=== PATIENT | male | born 1970 | race Caucasian/White ===

== ENCOUNTER 2020-03-09 19:49 | Emergency (ER) | payer OTHER ==
[~2020-03-09] VITALS: Ht 185.4 cm; Wt 67.1 kg
[~2020-03-09 19:49] MED LIST: CELEBREX400 MG PO; FOLIC ACID1 MG PO; HUMIRA40 MG/0.8; MEDROLDOSEPACK PO; METHOTREXATE 22.5 M1 PO; MILLIPRED DP5 M1 PO; NOHOMEMEDICATIONS; NORCO 5-325 TA1 EACH PO
[2020-03-09 20:02] VITALS: BP 141/91
[2020-03-09 20:39] LABS: ABSOLUTE NEUTROPHILS 10.2 thou/uL (1.4-8.2); BASOPHILS 0.5 % (0.0-2.0); EOSINOPHILS 4.3 % (0.0-3.0); HEMATOCRIT 46.5 % (42.0-52.0); HEMOGLOBIN 15.3 gm/dL (14.0-18.0); LYMPHOCYTES 9.6 % (24.0-44.0); MCH 29.3 pg (26.0-34.0); MCV 88.8 fL (80.0-100.0); MONOCYTES 4.5 % (1.0-8.0); PLATELET COUNT 324 thou/uL (150-400); POLYS 81.1 % (36.0-66.0); RBC 5.24 mil/uL (4.50-6.00); RDW 13.9 % (10.5-14.5); WBC 12.6 thou/uL (4.0-11.0)
[2020-03-09 20:44] LABS: URINE BILIRUBIN 1+ (Negative); URINE BLOOD 3+ (Negative); URINE CLARITY CLOUDY; URINE COLOR RED; URINE GLUCOSE-RANDOM* NEGATIVE (Negative); URINE KETONES TRACE (Negative); URINE PROTEIN (DIPSTICK) 3+ (Negative); URINE SPECIFIC GRAVITY >= 1.030 (1.005-1.035)
[2020-03-09 20:46] LABS: ICTOTEST (BILI CONFIRMATORY) Positive (Negative); URINE LEUKOCYTES-REFLEX 2+ (Negative); URINE NITRITE-REFLEX POSITIVE (Negative)
[2020-03-09 20:50] LABS: CALCIUM 9.5 mg/dL (8.5-10.1); CREATININE 1.1 mg/dL (0.7-1.3); POTASSIUM 4.4 mmol/L (3.5-5.1)
[2020-03-09 21:33] LABS: BACTERIA-REFLEX 1-9 Few /HPF (None Seen); CALCIUM OXALATE 4-10 Moderate /LPF (None Seen); CASTS None Seen /LPF (None Seen); MUCUS 0-3 Light strn/LPF (None Seen); SQUAMOUS None Seen /LPF (0-3); URINE RBC >20 Many /HPF (0-2); URINE WBC-REFLEX 6-15 Few /HPF (0-5)
== END 2020-03-09 23:41 | disposition left against medical advice (07) ==
LOC: ER 19:49
PROVIDERS: Emergency Medicine
DX: N50.812 Left testicular pain (principal); N50.811 Right testicular pain; R31.9 Hematuria, unspecified; M06.9 Rheumatoid arthritis, unspecified; Z79.899 Other long term (current) drug therapy